=== PATIENT | female | born 1975 ===

== ENCOUNTER 2017-01-11 18:33 | Emergency (ER) | payer SELFPAY ==
[2017-01-11 18:51] VITALS: RESP 20
--- NOTE | 2017-01-11 19:32 | C.PDOC ---
Time Seen by Provider: 01/11/17 19:10 Chief Complaint (Nursing): Female Genitourinary History Per: Patient, Family Onset/Duration Of Symptoms: Days (1) Current Symptoms Are (Timing): Still Present Severity: Moderate Location Of Pain/Discomfort: Suprapubic Quality Of Discomfort: Unable To Describe, "Pain" Associated Symptoms: Urinary Symptoms Exacerbating Factors: None Alleviating Factors: None Additional History Per: Prior Records Abnormal Vaginal Bleeding: No Past Medical History Reviewed: Historical Data, Nursing Documentation, Vital Signs Vital Signs: Last Vital Signs Temp 98.3 F 01/11/17 18:48 Pulse 100 H 01/11/17 18:48 Resp 20 01/11/17 18:48 BP 137/92 H 01/11/17 18:48 Pulse Ox 96 01/11/17 19:32 - Medical History PMH: Asthma, Diabetes Surgical History: No Surg Hx Family History: States: Unknown Family Hx - Social History Hx Tobacco Use: No Hx Alcohol Use: No Hx Substance Use: No - Immunization History Hx Tetanus Toxoid Vaccination: No Hx Influenza Vaccination: No Hx Pneumococcal Vaccination: No Review Of Systems Except As Marked, All Systems Reviewed And Found Negative. Constitutional: Negative for: Fever, Weakness Cardiovascular: Negative for: Chest Pain Respiratory: Negative for: Shortness of Breath Gastrointestinal: Negative for: Vomiting Genitourinary: Positive for: Dysuria, Frequency Musculoskeletal: Negative for: Neck Pain Skin: Negative for: Rash Neurological: Negative for: Weakness, Numbness, Seizures, Altered Mental Status Physical Exam - Physical Exam Appears: Non-toxic, No Acute Distress Skin: Normal Color, Warm, Dry, No Rash Head: Atraumatic, Normacephalic Eye(s): bilateral: PERRL, EOMI Neck: Normal ROM, Supple Cardiovascular: Rhythm Regular Respiratory: Normal Breath Sounds, No Accessory Muscle Use Gastrointestinal/Abdominal: Soft, Tenderness (suprapubic), No Guarding, No Rebound Back: No CVA Tenderness Extremity: Normal ROM, No Pedal Edema, No Calf Tenderness Neurological/Psych: Oriented x3, Normal Motor, Normal Sensation ED Course And Treatment - Laboratory Results Lab Interpretation: Abnormal Interpretation Of Abnormal: UTI, urine C&S sent. Urine POC: Negative O2 Sat by Pulse Oximetry: 96 Pulse Ox Interpretation: Normal Disposition Counseled Patient/Family Regarding: Studies Performed, Diagnosis, Need For Followup, Rx Given - Disposition Referrals: [facility] [Outside] Disposition: HOME/ ROUTINE Disposition Time: 19:57 Condition: STABLE Additional Instructions: Drink plenty of fluids. Follow up with your doctor or in the clinic within 2-3 days. Return to the ER if you develop fever, vomiting, lethargy, worsening of symptoms or if you have any other concerns. Prescriptions: Ciprofloxacin [Cipro] 1 tab PO BID #14 tab Instructions: Urinary Tract Infection in Women (ED) - Clinical Impression Clinical Impression: UTI (urinary tract infection)
[2017-01-11 19:44] LABS: RBC URINE 504 /hpf (0-3); URINE BACTERIA FEW (<OCC); URINE BILIRUBIN NEGATIVE (NEGATIVE); URINE BLOOD 3+ (NEGATIVE); URINE CALCIUM OXALATE CRYSTALS MANY /hpf (<OCC); URINE COLOR Amber (YELLOW); URINE GLUCOSE (UA) 2+ mg/dL (Normal); URINE KETONE TRACE mg/dL (NEGATIVE); URINE LEUKOCYTE ESTERASE 3+ Leu/uL (Negative); URINE PROTEIN 2+ mg/dL (NEGATIVE); WBC URINE 1550 /hpf (0-5)
[2017-01-11 20:12] VITALS: BP 140/70; PULSE 99; TEMP 97.6; O2SAT 99
== END 2017-01-11 20:12 | disposition home or self-care (01) ==
LOC: C.ER 18:33
DX: N39.0 Urinary tract infection, site not specified (principal)

== ENCOUNTER 2018-04-10 13:19 | Emergency (ER) | payer SELFPAY ==
[2018-04-10 13:58] VITALS: BP 125/72; PULSE 94; RESP 20; TEMP 98.6; O2SAT 99
--- NOTE | 2018-04-10 14:13 | C.PDOC ---
History Of Present Illness FRONT R KNEE PAIN X 2 DAYS. LOCALIZED FRONT OF KNEE, WORSE W WT BEAR OR WALKING. ASYMPT WHEN @ REST. DENIES TRAUMA. PS CURRENT PAIN DIFF FROM R DVT. CURRENTLY ON ELIQUIS. NO PAIN MEDS TRIED, DENIES HO CHRONIC KNEE PAIN EXAM NAD EXT RLE ATRAUM NONTEND. PROM WO DIFF. NO GROSS JOINT LAXITY. NO KNEE SWELL. NO CALF SWELL, TEND SKIN INTACT GAIT LIMITED FULL WT BEAR R LEG DUE TO PAIN. MDM PATELLA TENONDITIS VS INT KNEE DERANGEMENT. KNEE BRACE, IMMOB, REFER PMD/ORTHO, NSAIDS Time Seen by Provider: 04/10/18 14:04 Chief Complaint (Nursing): Lower Extremity Problem/Injury History Per: Patient History/Exam Limitations: no limitations Onset/Duration Of Symptoms: Days Current Symptoms Are (Timing): Still Present Severity: Moderate Past Medical History Reviewed: Historical Data, Nursing Documentation, Vital Signs Vital Signs: Last Vital Signs Temp 98.6 F 04/10/18 13:55 Pulse 94 H 04/10/18 13:55 Resp 20 04/10/18 13:55 BP 125/72 04/10/18 13:55 Pulse Ox 99 04/10/18 14:15 - Medical History PMH: Asthma, Diabetes Surgical History: No Surg Hx Family History: States: No Known Family Hx - Social History Hx Tobacco Use: No Hx Alcohol Use: No Hx Substance Use: No - Immunization History Hx Tetanus Toxoid Vaccination: No Hx Influenza Vaccination: No Hx Pneumococcal Vaccination: No Review Of Systems Except As Marked, All Systems Reviewed And Found Negative. Musculoskeletal: Positive for: Other (right knee pain) Neurological: Negative for: Weakness, Numbness Physical Exam - Physical Exam Appears: No Acute Distress Skin: Normal Color, Warm, Dry Head: Atraumatic, Normacephalic Eye(s): bilateral: Normal Inspection Extremity: Normal ROM (RLE: PROM WO DIFF), No Tenderness (RLE), No Calf Tenderness, No Swelling (right knee), Other (no calf swelling) Extremity: Right: Atraumatic (RLE) Neurological/Psych: Oriented x3, Normal Speech Gait: Other (limited full wt bear r right leg due to pain) ED Course And Treatment O2 Sat by Pulse Oximetry: 99 (RA) Pulse Ox Interpretation: Normal Medical Decision Making Medical Decision Making: PATELLA TENONDITIS VS INT KNEE DERANGEMENT. KNEE BRACE, IMMOB, REFER PMD/ORTHO, NSAIDS Disposition Counseled Patient/Family Regarding: Diagnosis, Need For Followup, Rx Given - Disposition Referrals: [facility] [Outside] [facility] [Outside] Nathan Bray III, MD [Staff Provider] - YOUR,PMD [Other] Disposition: HOME/ ROUTINE Disposition Time: 14:14 Condition: IMPROVED Prescriptions: Ibuprofen [Motrin] 600 mg PO Q6 #30 tab Instructions: Knee Sprain (DC) Forms: [employer] (Liberian) - Clinical Impression Clinical Impression: Knee pain - Scribe Statement The provider has reviewed the documentation as recorded by the Joséibe Brittany Jerome Provider Attestation: All medical record entries made by the Scribe were at my direction and personally dictated by me. I have reviewed the chart and agree that the record accurately reflects my personal performance of the history, physical exam, medical decision making, and the department course for this patient. I have also personally directed, reviewed, and agree with the discharge instructions and disposition.
== END 2018-04-10 14:55 | disposition home or self-care (01) ==
LOC: C.ER 13:19
DX: M25.561 Pain in right knee (principal)